=== PATIENT | male | born 2005 | race Caucasian/White ===

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

== ENCOUNTER → 2023-05-04 | Outpatient (REF) | payer BC | LOC: M SFHCDERM 15:00 → EEVIPCON 15:00 | PROVIDERS: ATTEND Physician Assistant | DX: L01.00 Impetigo, unspecified (principal) ==

== ENCOUNTER → 2023-10-26 | Outpatient (REF) | payer BC ==
[2023-10-26 13:53] LABS: FOLLICLE STIMULATING HORMONE 3.6 mIU/ML (1.4-18.1)
[2023-10-26 13:54] LABS: LUTEINIZING HORMONE 7.5 mIU/ML (1.5-9.3)
[2023-10-26 13:57] LABS: PROLACTIN 25.79 NG/ML (2.1-17.7)
== END ==
LOC: M LAB REF 12:31
PROVIDERS: ATTEND Internal Medicine
DX: N50.9 Disorder of male genital organs, unspecified (principal)

== ENCOUNTER → 2023-11-12 | Outpatient (REF) | payer BC | LOC: M SFHCDERM 12:21 | PROVIDERS: ATTEND Physician Assistant | DX: Z86.14 Personal history of Methicillin resistant Staphylococcus aureus infection (principal) ==

== ENCOUNTER → 2024-02-24 | Outpatient (REF) | payer BC ==
[2024-02-24 17:34] LABS: FOLLICLE STIMULATING HORMONE 3.3 mIU/ML (1.4-18.1); LUTEINIZING HORMONE 6.2 mIU/ML (1.5-9.3); PROLACTIN 14.89 NG/ML (2.1-17.7)
[2024-03-02 22:32] LABS: TESTOSTERONE FREE (DIRECT) 126.7 pg/mL (35.0-155.0)
== END ==
LOC: M LAB REF 16:07
PROVIDERS: ATTEND Internal Medicine
DX: N50.9 Disorder of male genital organs, unspecified (principal); Z11.1 Encounter for screening for respiratory tuberculosis; D35.4 Benign neoplasm of pineal gland

== ENCOUNTER → 2024-07-11 | Outpatient (CLI) | payer BC ==
[2024-07-11 16:47] LABS: BASO % 0.6 % (0.0-1.0); EOS # 0.1 10^3/uL (0.0-0.5); EOS % 2.2 % (0.0-3.0); HEMOGLOBIN 15.1 g/dl (13.5-17.5); LYMPH # 1.5 10^3/uL (1.5-5.0); LYMPH % 29.9 % (24.0-44.0); MEAN CORPUSCULAR HEMOGLOBIN 31.9 pg (27.0-33.0); MEAN CORPUSCULAR VOLUME 88.6 fl (80.0-96.0); MONO # 0.7 10^3/uL (0.0-0.8); MONO % 13.1 % (2.0-8.0); NEUTROPHILS # 2.7 10^3/uL (1.5-8.5); PLATELET COUNT, AUTOMATED 276 10^3/uL (150-450); RED BLOOD COUNT 4.74 10^6/uL (4.30-6.10); WHITE BLOOD COUNT 5.1 10^3/uL (4.0-10.0)
[2024-07-11 17:17] LABS: ALBUMIN 4.4 G/DL (3.2-5.2); ALKALINE PHOSPHATASE 68 U/L (40-129); ALT/SGPT 25 U/L (7.0-40); AST/SGOT 17 U/L (<34); BILIRUBIN,TOTAL 0.4 MG/DL (0.3-1.2); BLOOD UREA NITROGEN 16 MG/DL (9-23); CALCIUM LEVEL 9.6 MG/DL (8.5-10.1); CARBON DIOXIDE LEVEL 30 MMOL/L (20-31); CHLORIDE LEVEL 104 MMOL/L (98-107); CREATININE FOR GFR 0.87 MG/DL (0.70-1.30); GLOMERULAR FILTRATION RATE > 90.0 (>60); GLUCOSE, FASTING 69 MG/DL (60-100); POTASSIUM SERUM 4.5 MMOL/L (3.5-5.1); SODIUM LEVEL 142 MMOL/L (136-145); TOTAL PROTEIN 7.3 G/DL (5.7-8.2)
== END ==
LOC: M LAB 14:48
PROVIDERS: ATTEND Nurse Practitioner Family
DX: Z00.00 Encounter for general adult medical examination without abnormal findings (principal)